=== PATIENT | female | born 1940 | race Caucasian/White ===

== ENCOUNTER 2019-09-21 13:04 | Inpatient (IN) | payer MEDICARE, BC ==
[~2019-09-21] VITALS: Ht 152.4 cm; Wt 45.4 kg
[2019-09-21] MEDS ORDERED: CLEOCIN HCL300 MG PO (13:16)
[2019-09-21] MEDS ORDERED: ZOFRAN4 MG PO (13:17)
[2019-09-21] MEDS ORDERED: CELEXA10 MG PO (13:17)
[2019-09-21] MEDS ORDERED: CALCIUM 250+D T1 TAB PO (13:18)
[2019-09-21] MEDS ORDERED: CENTRUM SILVER1 EAC3 PO (13:18)
[2019-09-21 13:50] LABS: HEMATOCRIT 35.2 % (36.0-48.0); HEMOGLOBIN 11.9 g/dL (12-16); LYMPHOCYTES 16.9 % (15-50); MCH 31.1 pg (26.0-34.0); MCHC 33.8 g/dL (31.0-37.0); MCV 91.9 fL (80.0-100.0); MEAN PLATELET VOLUME 10.2 fL (7.4-10.4); NEUTROPHILS 71.9 % (40-80); PLATELET COUNT 326 10x3/uL (130-400); RBC 3.83 10x6/uL (4.00-5.40); RDW 13.3 % (11.5-14.5); WBC 7.8 10x3/uL (4.8-10.8)
[2019-09-21 13:51] LABS: BILIRUBIN NEGATIVE (NEGATIVE); GLUCOSE NEGATIVE (NEGATIVE); KETONE NEGATIVE (NEGATIVE); NITRITE NEGATIVE (NEGATIVE); SPECIFIC GRAVITY 1.015 (1.005-1.020); UROBILINOGEN NORMAL (NORMAL)
[2019-09-21 13:53] LABS: AMORPHOUS SEDIMENT <1+ /lpf (NONE SEEN); BACTERIA FEW /hpf (NEGATIVE); EPITHELIAL CELLS 0-5 /hpf (0-5); HYALINE CAST OCC /lpf (NONE SEEN); RED CELLS - URINE 0-5 /hpf (0-5); WHITE CELLS - URINE 0-5 /hpf (NEGATIVE)
[2019-09-21 13:59] LABS: INR 0.88 (0.85-1.17); PROTIME 11.9 SECONDS (11.6-15.0)
[2019-09-21 14:00] LABS: UDS - AMPHET NEGATIVE QUAL (NEGATIVE); UDS - BARB NEGATIVE QUAL (NEGATIVE); UDS - BENZO NEGATIVE QUAL (NEGATIVE); UDS - COCAINE NEGATIVE QUAL (NEGATIVE); UDS - OPIATE NEGATIVE QUAL (NEGATIVE); UDS - PCP NEGATIVE QUAL (NEGATIVE); UDS - THC NEGATIVE QUAL (NEGATIVE)
[2019-09-21 14:18] LABS: ALBUMIN 3.9 g/dL (3.4-5.0); ALKALINE PHOSPHATASE 74 U/L (30-120); ALT (SGPT) 21 U/L (10-68); AMYLASE - SERUM 50 U/L (25-115); BILIRUBIN - TOTAL 0.69 mg/dL (0.2-1.3); CALC OSMOLALITY 282 mosm/kg (275-300); CHLORIDE - SERUM 98 mmol/L (98-107); CKMB 1.7 U/L (0.0-3.6); CREATINE KINASE 55 UL (21-215); GLUCOSE 148 mg/dL (74-106); LIPASE 178 U/L (73-393); MAGNESIUM - SERUM 2.2 mg/dL (1.8-2.4); PROTEIN - SERUM 7.5 g/dL (6.4-8.2); SODIUM 139 mmol/L (136-145); THYROID STIMULATING HORMONE 0.79 uIU/mL (0.36-3.74); TROPONIN-I < 0.017 ng/mL (0.000-0.060); UREA NITROGEN 19 mg/dL (7-18); eGFR NON AFRICAN AMERICAN 25 mL/min (90-120)
[2019-09-21 14:32] LABS: POTASSIUM - SERUM 2.8 mmol/L (3.5-5.1)
--- NOTE | 2019-09-21 14:32 | NUR ---
k+ of 2.8 called by vat house laborer at this time. 15.8 critically high calcium called by vat house laborer at this time.
[2019-09-21 14:33] LABS: CALCIUM 15.8 mg/dL (8.5-10.1)
[2019-09-21 16:46] VITALS: BMI 19.5
[2019-09-21 17:37] VITALS: BP 182/80
--- NOTE | 2019-09-21 18:45 | NUR ---
PATIENT IN BED WITH IV INTACT. NEEDS ONE MORE RIDER OF K+. IV INTACT. GAVE TYLENOL FOR GROIN PAIN. DR. MOSES OVER TO SEE PATIENT. CALL LIGHT WITHIN REACH.
[2019-09-21 20:01] VITALS: BP 189/97
--- NOTE | 2019-09-21 20:10 | NUR ---
AWAKE,ALERT.ORIENTED TO SELF ONLY. NO CONMPLAITNS VOICED. NO DISTRESS NOTED. 16 FR CALL PLACED PER DR MOSES ORDERS. RETURNED 500 CC CLEAR YELLOW URINE. IV TO LFA INTACT WITHOUT REDENESS OR EDEMA NOTED. CL IN REACH
[2019-09-22] VITALS (7 sets, daily range): BP systolic 144–192; BP diastolic 65–97; BMI 19.5
[2019-09-22 04:58] LABS: HEMOGLOBIN 9.9 g/dL (12-16); LYMPHOCYTES 22.5 % (15-50); MCH 30.6 pg (26.0-34.0); MCV 92.6 fL (80.0-100.0); MEAN PLATELET VOLUME 10.2 fL (7.4-10.4); NEUTROPHILS 65.4 % (40-80); PLATELET COUNT 261 10x3/uL (130-400); RBC 3.24 10x6/uL (4.00-5.40); RDW 13.3 % (11.5-14.5)
[2019-09-22 05:08] LABS: WBC 5.4 10x3/uL (4.8-10.8)
[2019-09-22 05:34] LABS: BILIRUBIN - TOTAL 0.76 mg/dL (0.2-1.3); CARBON DIOXIDE 33.3 mmol/L (21.0-32.0); CREATININE - SERUM 1.8 mg/dL (0.6-1.3); MAGNESIUM - SERUM 1.9 mg/dL (1.8-2.4); PHOSPHOROUS 2.4 mg/dL (2.5-4.9); PROTEIN - SERUM 6.1 g/dL (6.4-8.2); THYROID STIMULATING HORMONE 0.7 uIU/mL (0.36-3.74)
[2019-09-22 05:36] LABS: ALBUMIN 2.9 g/dL (3.4-5.0); ANION GAP 5.4 mmol/L (8-16)
[2019-09-22 05:37] LABS: CALCIUM 13.3 mg/dL (8.5-10.1); POTASSIUM - SERUM 2.7 mmol/L (3.5-5.1)
--- NOTE | 2019-09-22 12:34 | NUR ---
SCAB NOTED ON RIGHT PUBIS. NO DRAINAGE OR ODOR. TREATED PRIOR TO ADMISSION WITH CLINDAMYCIN PER PRIMARY MD: MOST LIKELY INGROWN HAIR. WOUND CARE WILL MONITOR NEEDED.
--- NOTE | 2019-09-22 18:45 | NUR ---
PATIENT IN BED WITH IV INTACT. NO COMPLAINTS. REFUSING TO EAT. CALL INTACT. CALL LIGHT WITHIN REACH.
--- NOTE | 2019-09-23 00:14 | NUR ---
194) REC'D. CHGE OF SHIFT WALKING ROUNDS.IN BED EYES CLOSED RESP. DEEP AND EVEN.AROUSES EASILY TO VERBAL STIMULI WHEN NAME CALLED.ROOM AIR NO RESP. DISTRESS OBSERVED.CALL PATENT AND JESUS COLORED.WILL CONTINUE TO MONITOR FOR ANY CHGES AND FOLLOW CURRENT PLAN OF CAREPOSEY MAT IN PLACE AND ON FOR SAFETY.
--- NOTE | 2019-09-23 01:09 | NUR ---
I have reviewed this patient and I concur with the Shift Assessment completed by the Licensed Practical Nurse today this shift.
[2019-09-23 04:00] VITALS: BP 189/92
--- NOTE | 2019-09-23 04:34 | NUR ---
PULLED IV OUT LEFT FOREARM RESISTED #22 LEFT UPPER ARM X1 STICK. TOLERATED WELL
[2019-09-23 04:59] LABS: HEMATOCRIT 29.7 % (36.0-48.0); HEMOGLOBIN 10.1 g/dL (12-16); LYMPHOCYTES 20.7 % (15-50); MCH 31.3 pg (26.0-34.0); MEAN PLATELET VOLUME 10.1 fL (7.4-10.4); NEUTROPHILS 71.2 % (40-80); PLATELET COUNT 272 10x3/uL (130-400); RBC 3.23 10x6/uL (4.00-5.40); RDW 13.3 % (11.5-14.5)
[2019-09-23 05:01] LABS: ALBUMIN 3.2 g/dL (3.4-5.0); ANION GAP 13.3 mmol/L (8-16); BILIRUBIN - TOTAL 0.81 mg/dL (0.2-1.3); CALCIUM 11.5 mg/dL (8.5-10.1); CARBON DIOXIDE 26.5 mmol/L (21.0-32.0); CREATININE - SERUM 1.6 mg/dL (0.6-1.3); PROTEIN - SERUM 6.5 g/dL (6.4-8.2)
[2019-09-23 05:02] LABS: WBC 7.4 10x3/uL (4.8-10.8)
[2019-09-23 05:15] LABS: POTASSIUM - SERUM 2.8 mmol/L (3.5-5.1)
[2019-09-23 09:03] VITALS: BP 201/97
[2019-09-23 11:09] LABS: SPE - A/G RATIO 1.2 (0.7-1.7); SPE - ALPHA-1 GLOBULIN 0.3 g/dL (0.0-0.4); SPE - ALPHA-2 GLOBULIN 0.7 g/dL (0.4-1.0); SPE - BETA GLOBULIN 0.8 g/dL (0.7-1.3); SPE - GAMMA GLOBULIN 0.8 g/dL (0.4-1.8); SPE - M-SPIKE Not Observed g/dL (Not Observed); SPE - TOTAL PROTEIN 5.6 g/dL (6.0-8.5)
[2019-09-23 12:48] VITALS: BP 199/108
--- NOTE | 2019-09-23 14:37 | MORECARE ---
CASE MANAGEMENT DISCHARGE SUMMARY PATIENT: OZIEL CABRERA UNIT: [id number] ADM DATE: 09/21/19 AGE: 78 : 40 SEX: F ROOM/BED: D.2220 AUTHOR: RAIMUNDO SANFORD PHYSICIAN: REFERRING PHYSICIAN: DANAE WYNN MD DATE OF SERVICE: 09/23/19 Discharge Plan Patient Name: OZIEL CABRERA Facility: [facility]:[place] : 1940 Planned Disposition: Home or Self Care Anticipated Discharge Date: Discharge Date: Expected LOS: Initial Reviewer: [email or web address] Initial Review Date: 09/21/2019 Generated: 09/23/19 3:36 pm DCPIA - Discharge Planning Initial Assessment Updated by [email or web address]: Heidi Kitchen on 09/23/19 2:27 pm * Is the patient Alert and Oriented? Yes * How many steps to enter\exit or inside your home? * PCP ANDREA * Pharmacy [facility] * Preadmission Environment Home with Family * ADLs Independent * Equipment None * List name and contact numbers for known caregivers / representatives who currently or will assist patient after discharge: REYNA (SPOUSE) [phone] * Verbal permission to speak to the caregivers and representatives has been obtained from the patient. Yes * Additional services required to return to the preadmission environment? Yes * Has this patient been hospitalized within the prior 30 days at any hospital? No Patient Name: OZIEL CABRERA Page [phone] at 1437 All edits/amendments must be made on the electronic document DICTATION DATE: 09/23/19 1436 BUFFER AUTOMATIC: EARLE 09/23/19 1436 RPT#: [id number] DC DATE: STATUS: ADM IN [facility] [address] [place] [address] END OF REPORT
--- NOTE | 2019-09-23 16:14 | NUR ---
Patient is unable to answer MRI screening questions. I tried both phone numbers for her and was unable to get him to answer. I will try again tomorrow.
[2019-09-23 17:49] VITALS: BP 202/100
[2019-09-23 20:00] VITALS: BP 190/93
[2019-09-24] VITALS: BP 140/62
--- NOTE | 2019-09-24 01:02 | NUR ---
PT RESTING IN BED. EYES CLOSED. NO SIGNS OF DISTRESS. BREATHING EVEN AND UNLABORED. IV SITE LT UPPER ARM DRESSING CLEAN DRY AND INTACT. NO SIGNS OF INFECTION OR INFULTRATION. LUNG SOUNDS CLEAR. BOWEL SOUNDS ACTIVE. SKIN CLEAN DRY AND INTACT. WILL CONTINUE PLAN OF CARE. CALL LIGHT IN REACH. BED LOWERED AND LOCKED. VENTURA ALARM ON. BED RAILS UPX2.
--- NOTE | 2019-09-24 01:53 | NUR ---
I have reviewed this patient and I concur with the Shift Assessment completed by the Licensed Practical Nurse today this shift.
--- NOTE | 2019-09-24 01:53 | NUR ---
I have reviewed this patient and I concur with the Shift Assessment completed by the Licensed Practical Nurse today this shift.
[2019-09-24 04:00] VITALS: BP 113/71
[2019-09-24 04:56] LABS: BASOPHILS 0.5 % (0-2); EOSINOPHILS 1.8 % (0-7); IMMATURE GRANULOCYTES 0.5 % (0-5); MCH 31.1 pg (26.0-34.0); MCHC 33.3 g/dL (31.0-37.0); MCV 93.2 fL (80.0-100.0); MEAN PLATELET VOLUME 10.3 fL (7.4-10.4); MONOCYTES 9.4 % (2-11); NEUTROPHILS 70.8 % (40-80); PLATELET COUNT 271 10x3/uL (130-400); RBC 3.22 10x6/uL (4.00-5.40); RDW 13.3 % (11.5-14.5); WBC 7.4 10x3/uL (4.8-10.8)
[2019-09-24 05:18] LABS: ALBUMIN 2.9 g/dL (3.4-5.0); ANION GAP 12.9 mmol/L (8-16); BILIRUBIN - TOTAL 0.98 mg/dL (0.2-1.3); CALCIUM 9.2 mg/dL (8.5-10.1); CARBON DIOXIDE 24.4 mmol/L (21.0-32.0); CREATININE - SERUM 1.3 mg/dL (0.6-1.3); POTASSIUM - SERUM 3.3 mmol/L (3.5-5.1); PROTEIN - SERUM 6.2 g/dL (6.4-8.2)
--- NOTE | 2019-09-24 08:00 | NUR ---
ASSESSMENT PER FLOW SHEET. PATIENT IS WITHOUT DISTRESS.CALL LIGHT I REACH. DOOR OPEN TO MONITOR.
[2019-09-24 09:53] VITALS: BP 146/83
[2019-09-24 09:54] LABS: % SATURATION 25 % (15-55); IRON 56 ug/dl (35-150); TOTAL IRON BIND CAPACITY 223 ug/dl (260-445); UNSAT IRON BIND CAPACITY 167 ug/dl (150-375)
--- NOTE | 2019-09-24 11:16 | NUR ---
PATIENT AND BOTH REFUSED MRI. PER PATIENT AND THEY WANTED TO TALK TO DR MENDEZ BECAUSE THE "DON'T THINK SHE NEEDS IT." SPOKE WITH DEBBIE DELVALLE AND RJ AT DR COSTA'S OFFICE. MRI IS CANCELLED.
[2019-09-24 13:10] LABS: UPE RAND - ALBUMIN 43.6 % (()); UPE RAND - ALPHA 1 GLOBULIN 9.1 % (()); UPE RAND - ALPHA 2 GLOBULIN 12.4 % (()); UPE RAND - BETA GLOBULIN 20.5 % (()); UPE RAND - GAMMA GLOBULIN 14.4 % (())
[2019-09-24 13:21] VITALS: BP 143/60
[2019-09-24 16:46] VITALS: BP 149/78
--- NOTE | 2019-09-24 17:22 | NUR ---
PATIENT AND PATIENTS DECLINED MRI EARLIER TODAY. PATIENT SAYS SHE STILL DOES NOT WANT MRI AND REFUSES TEST.
--- NOTE | 2019-09-24 17:23 | NUR ---
MRI WAS REORDERED. PATIENT IS STILL REFUSING EXAM. SPOKE WITH DEBBIE DELVALLE, NEGRITO JOLLEY, AND DR COSTA. WE WILL TRY AGAIN TOMORROW.
--- NOTE | 2019-09-24 18:39 | NUR ---
OT NOTE: PT COMPLETED BED MOB TASKS WITH MOD A. PT REQUIRED CUES FOR SIMPLE TASKS. PT COMPLETED UB HYGIENE WITH SETUP-MIN A. [phone] THANK YOU,CLAUDINE TURCIOS
[2019-09-25] VITALS: BP 129/55
--- NOTE | 2019-09-25 01:05 | NUR ---
PT STATES SHE FEELS VERY ANXIOUS. PT PARINOID STATES " WE ARE OUT TO GET HER IF SHE DOESNT RETURN HOME NOW HER SON IS A FBI AGENT AND HE WILL FIND OUT WHAT HAPPEND" GIVEN LEANDRO SANTOYO. WILL CLOSELY MONITOR. CALL LIGHT IN REACH BED ALARM ON.
--- NOTE | 2019-09-25 01:46 | NUR ---
PT RESTING IN BED NOW. EYES CLOSED. NO SIGNS OF DISTRESS. BREATHING EVEN AND UNLABORED. WILL CONTINUE PLAN OF CARE. CALL LIGHT IN REACH. VENTURA ALARM ON. BED RAILS UPX3
[2019-09-25 04:00] VITALS: BP 1369/65
--- NOTE | 2019-09-25 04:51 | NUR ---
I have reviewed this patient and I concur with the Shift Assessment completed by the Licensed Practical Nurse today this shift.
[2019-09-25 05:40] LABS: BASOPHILS 0.3 % (0-2); EOSINOPHILS 2.9 % (0-7); HEMATOCRIT 27.6 % (36.0-48.0); HEMOGLOBIN 9.2 g/dL (12-16); IMMATURE GRANULOCYTES 0.3 % (0-5); LYMPHOCYTES 20.2 % (15-50); MCH 30.9 pg (26.0-34.0); MCHC 33.3 g/dL (31.0-37.0); MCV 92.6 fL (80.0-100.0); NEUTROPHILS 68.3 % (40-80); PLATELET COUNT 240 10x3/uL (130-400); RBC 2.98 10x6/uL (4.00-5.40); RDW 13.6 % (11.5-14.5); WBC 5.8 10x3/uL (4.8-10.8)
[2019-09-25 06:03] LABS: ALBUMIN 2.5 g/dL (3.4-5.0); ANION GAP 10.7 mmol/L (8-16); BILIRUBIN - TOTAL 0.6 mg/dL (0.2-1.3); CALCIUM 7.7 mg/dL (8.5-10.1); CARBON DIOXIDE 24.4 mmol/L (21.0-32.0); CREATININE - SERUM 1.1 mg/dL (0.6-1.3); POTASSIUM - SERUM 3.1 mmol/L (3.5-5.1); PROTEIN - SERUM 5.5 g/dL (6.4-8.2)
--- NOTE | 2019-09-25 08:06 | NUR ---
ALERT AND ORIENTED TO SELF. LUNGS CLEAR BILATERALLY. HEART SOUNDS S1 AND S2 HEARD IN ALL [place]. BOWEL SOUNDS ACTIVE X 4. SORE TO VAGINA NOTED. IV TO LFA PATENT WITHOUT REDNESS. DENIES PAIN. DENIES NEEDS. BED LOW. FALL PRECAUTIONS IN PLACE. CALL MADISON AND PERSONAL ITEMS IN REACH. WILL CONTINUE TO MONITOR.
[2019-09-25 08:45] VITALS: BP 146/76
--- NOTE | 2019-09-25 11:45 | NUR ---
SPOKE WITH MRI WHO IS ASKING IF PATIENT WILL DO MRI THIS AFTERNOON. PATIENT STATES NOT DOING MRI. ATTEMPTED TO EDUCATE PATIENT. STATES REPEATEDLY IS NOT DOING MRI. MRI NOTIFIED.
[2019-09-25 12:12] VITALS: BP 116/64
--- NOTE | 2019-09-25 13:01 | NUR ---
CALL REMOVED AND PATIENT EDUCATION PROVIDED. VERBALIZED UNDERSTANDING. WILL CONTINUE TO MONITOR.
--- NOTE | 2019-09-25 15:02 | NUR ---
SPOKE WITH THE PATIENT ABOUT THE MRI AGAIN. ROSY NUCLEAR MEDICAL TECHNOLOGIST AND I BOTH EXPLAINED HOW IMPORTANT IT WAS FOR THE PATIENT TO HAVE THE MRI. THE PATIENT REFUSED TO HAVE THE MRI AGAIN. ROSY INFORMED ME TO PUT EXAM ON HOLD AND SHE WOULD SPEAK TO ESTEE JOLLEY AND DR COSTA ON HOW TO CONTINUE.
--- NOTE | 2019-09-25 15:17 | NUR ---
PATIENT ASSISTED TO BSC. LARGE VOID NOTED.
--- NOTE | 2019-09-25 15:40 | MORECARE ---
CASE MANAGEMENT DISCHARGE SUMMARY PATIENT: OZIEL CABRERA UNIT: [id number] ADM DATE: 09/21/19 AGE: 78 : 40 SEX: F ROOM/BED: D.2220 AUTHOR: RAIMUNDO SANFORD PHYSICIAN: REFERRING PHYSICIAN: DANAE WYNN MD DATE OF SERVICE: 09/25/19 Discharge Plan Patient Name: OZIEL CABRERA Facility: [facility]:[place] : 1940 Planned Disposition: Home or Self Care Anticipated Discharge Date: Discharge Date: Expected LOS: Initial Reviewer: [email or web address] Initial Review Date: 09/21/2019 Generated: 09/25/19 4:40 pm Comments DCP- Discharge Planning Updated by [email or web address]: Heidi Kitchen on 09/25/19 2:[address] spoke with Patient and fishing tool technician oil well about the MRI and she is refusing the MRI, even explained to her about not using contrast. She still is not wanting to do the test. the providers all aware DCP- Discharge Planning Updated by [email or web address]: Heidi Kitchen on 09/23/19 1:[address] Patient Name: OZIEL CABRERA Admission Status: ER Accout number: [id number] Admission Date: 09-21-2019 : 1940 Admission Diagnosis:ALTERED MENTAL STATUS, UNSPECIFIED Attending: DANAE WYNN Current LOS: 2 Anticipated DC Date: Planned Disposition: Home or Self Care Primary Insurance: MEDICARE A & B Discharge Planning Comments: CM met with patient to complete initial dc planning assessment. CM educated patient on the CM role and verbal consent given by patient to complete assessment. 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 The patient is very tearful and sad. She is having a hard time getting words out and would like to speak to her . I attempted to call him but he did not answer, but I left a message for him to call her room & I placed the phone in her lap where she could reach it. From previous interaction with her spouse this past year, this is abnormal behavior for the patient then how he described her. Patient did state that she does not uses any DME and feeds herself at home. When I mentioned this to the patients nurse, the patient asked me why in the world would I ask these questions. There is a "feeder" sign on the door. I got the patient a glass of fresh water and she held it and served herself. She was unable to place it back on the bedside table. Patient denied known discharge needs at this time. CM will continue to follow and will assist as needed with dc plans/needs. Vehicle Damage Appraiser: Heidi Kitchen DCPIA - Discharge Planning Initial Assessment Updated by [email or web address]: Heidi Kitchen on 09/23/19 2:27 pm * Is the patient Alert and Oriented? Yes * How many steps to enter\\exit or inside your home? * PCP ANDREA * Pharmacy [facility] * Preadmission Environment Home with Family * ADLs Independent * Equipment None * List name and contact numbers for known caregivers / representatives who currently or will assist patient after discharge: REYNA (SPOUSE) [phone] * Verbal permission to speak to the caregivers and representatives has been obtained from the patient. Yes * Additional services required to return to the preadmission environment? Yes * Has this patient been hospitalized within the prior 30 days at any hospital? No Last DP export: 09/23/19 1:36 p Patient Name: OZIEL CABRERA Page [phone] at 1540 All edits/amendments must be made on the electronic document DICTATION DATE: 09/25/19 154 SURVEILLANCE SENSOR OPERATOR: EARLE 09/25/19 1540 RPT#: [id number] DC DATE: STATUS: ADM IN [facility] [address] [place] [address] END OF REPORT
--- NOTE | 2019-09-25 17:24 | NUR ---
RESTING IN BED. DNEIES NEEDS. WILL CONTINUE TO MONITOR.
[2019-09-25 17:27] VITALS: BP 125/73
[2019-09-25 20:00] VITALS: BP 122/69
--- NOTE | 2019-09-25 20:00 | NUR ---
PT ALERT AND ORIENTED. NO SIGNS OF DISTRESS. BREATHING EVEN AND UNLABORED. PT SEEMS IN HAPPY MOOD. PT STATES NO PROBLEMS AT THIS TIME. IV SITE LT FA DRESSING CLEAN DRY AND INTACT. NO SIGNS OF IFECTION OR INFULTRATION. BOWEL SOUNDS ACTIVE. LUNG SOUNDS CLEAR. SKIN CLEAN DRY AND INTACT. SMALL SCAB ON GROIN NOT OPEN. WILL CONTINUE PLAN OF CARE. CALL LIGHT IN REACH. BED LOWERED AND LOCKED. VENTURA ALARM ON. FALL PRECAUTIONS IN PLACE.
[2019-09-26] VITALS: BP 121/64
--- NOTE | 2019-09-26 02:53 | NUR ---
PT WOKE UP IN A PARINOID STATE. PT STATES SEEING THINGS OUT IN THE HALLWAY THAT ARE NOT THERE. PT STATES "YALL ARE TRICKING ME AND IM GOING TO HERE" ALSO SAYING " WHAT ARE YALL PLANNING HERE AM I EVER GOING TO GET TO SEE MY AND DAUGHTER AGAIN" REASURED PT WE ARE HERE TO HELP HER GET BETTER AND GET BACK HOME TO HER AND DAUGHTER. FINALLY AFTER 20 MINS OF TRYING TO CALM HER DOWN SHE IS IN A BETTER STATE AND RESTING. WILL CONTINUE TO CLOSELY MONITOR. VENTURA ALARM AND ALL FALL PRECAUTIONS ON.
--- NOTE | 2019-09-26 03:39 | NUR ---
PT RESFUSING BLOOD DRAW THIS MORNING. PT STATES " YOU CANT JUST DRAIN PEOPLE OF THERE BLOOD" EXPLAINED THATS WHY SHE IS IN THE HOSPITAL THE DOCTORS NEED TO KEEP CLOSE LOOK ON LAB LEVELS TO BETTER HER CARE PT STATES " WELL I DIDNT BRING MYSELF TO THIS HOSPITAL SO YOU WILL NOT TAKE ANYTHING MORE FROM ME". TRIED TO REORIENT PT STILL REFUSING. WILL ATTEMPT AGAIN LATER.
[2019-09-26 04:00] VITALS: BP 148/84
--- NOTE | 2019-09-26 06:00 | NUR ---
I have reviewed this patient and I concur with the Shift Assessment completed by the Licensed Practical Nurse today this shift.
[2019-09-26 08:56] VITALS: BP 142/83
--- NOTE | 2019-09-26 10:25 | NUR ---
PT IS A LITTLE CONFUSED THIS MORNING, STATED THAT SHE SHOULD BE HOME WITH HER SPOUSE AND DAUGHTER AND UNSURE WHY SHE IS STILL HERE AND WHY HER FAMILY HAS NOT VISITED. WENT OVER COVID PROTOCOL WITH PT, PT IS SITTING UP AT BEDSIDE PREPARING TO HAVE BREAKFAST, STATED SHE DID NOT NEED ANYTHING AT THIS TIME, IV IN LEFT FA CDI FLUIDS AT 125, LUNGS CTA, CONTINUE WITH PLAN OF CARE
[2019-09-26 12:07] LABS: BASOPHILS 0.5 % (0-2); EOSINOPHILS 1.6 % (0-7); HEMATOCRIT 30.3 % (36.0-48.0); IMMATURE GRANULOCYTES 0.5 % (0-5); LYMPHOCYTES 18.7 % (15-50); MCH 30.6 pg (26.0-34.0); MCV 92.7 fL (80.0-100.0); MEAN PLATELET VOLUME 9.9 fL (7.4-10.4); MONOCYTES 6.9 % (2-11); NEUTROPHILS 71.8 % (40-80); PLATELET COUNT 275 10x3/uL (130-400); RBC 3.27 10x6/uL (4.00-5.40); WBC 6.1 10x3/uL (4.8-10.8)
[2019-09-26 12:22] LABS: ALBUMIN 3.1 g/dL (3.4-5.0); BILIRUBIN - TOTAL 0.73 mg/dL (0.2-1.3); CARBON DIOXIDE 22.3 mmol/L (21.0-32.0); PROTEIN - SERUM 6.2 g/dL (6.4-8.2)
[2019-09-26 12:24] LABS: POTASSIUM - SERUM 3.3 mmol/L (3.5-5.1)
[2019-09-26 12:25] LABS: CALCIUM 6.7 mg/dL (8.5-10.1)
--- NOTE | 2019-09-26 12:28 | NUR ---
RECEIVED CALL FROM LAB AND WAS ADVISED PT CA IS 6.7, RELAYED MESSAGE TO RODNEY FONTANEZ AND WAS TOLD TO INFORM RENAL, WILL HAVE RENAL PAGED. PT IS SITTING UP AT BEDSIDE, HAVING LUNCH NO NEEDS VOICED, CONTINUE WITH PLAN OF CARE
--- NOTE | 2019-09-26 13:12 | NUR ---
OT NOTE: PT MORE CONFUSED, PARANOID, AND AGITATED TODAY. WANTS TO KNOW WHY SHE CANT SEE HER OR DTR; WHY CANT SHE GET OUT OF HERE; REFUSES TO AMBULATE BECAUSE SHE THINKS THIS THERAPIST WILL "MAKE HER DISAPPEAR"..REFUSES ALL ADLS OR IN ROOM MOBILITY. HOWEVER, WHEN P.T. CHART CHANGER COMES INTO PTS ROOM, SHE RECOGNIZES HIM AND CALLS HIM BY NAME.. AGREEABLE TO AMB WTIH HIM WITH WALKER GREATER THAN 100 FT.. TRANSFERRED TO CHAIR FOR HIM WITH MIN ASSIST WALKER GOMEZ, OTR/L [phone]
--- NOTE | 2019-09-26 13:30 | NUR ---
NUtrition follow-up: Diet: AHA PO intake 25-50% of last 3 meals; po intake improved a little from admit Labs reviewed Wt: 99# Will continue to provide food choices and honor food preferences. RDN following.
--- NOTE | 2019-09-26 17:02 | NUR ---
OT NOTE: PT COMPLETED FACE AND HAND HYGIENE WITH MIN A. PT COMPLETED UE AROM WITH FUNCTIONAL TASKS. PT IS EXHIBITING SELF LIMITING BEHAVIOR. PT STATES SHE NEEDS TO SEE DAUGHTER AND . [phone] THANK YOU,CLAUDINE TURCIOS
[2019-09-26 18:31] VITALS: BP 134/68
--- NOTE | 2019-09-26 19:41 | NUR ---
I have reviewed this patient and I concur with the Shift Assessment completed by the Licensed Practical Nurse today this shift.
[2019-09-26 20:00] VITALS: BP 127/71
--- NOTE | 2019-09-26 20:29 | NUR ---
PATIENT CALLED. PATIENT CONFUSED. DOES NOT UNDERSTAND WHAT THIS NURSE IS TALKING ABOUT BETWEEN CT SCAN AND MRI. EXPLAINED IN VERY SIMPLE TERMS. PATIENT DOES NOT ALLOW NURSE TO TALK WITHOUT SPEAKING OVER. CONSTANTLY TALKS OVER THIS NURSE. EXPLAINED SEVERAL TIMES DIFFERENCE BETWEEN MRI AND CAT SCAN. SEVERAL MINUTES ON THE PHONE WITH EXPLAINING. AT THIS TIME CONSENTS FOR PATIENT TO HAVE MRI LONG THERE ARE NO PROCEDURES WITH CONTRAST.
[2019-09-27 04:00] VITALS: BP 118/65
--- NOTE | 2019-09-27 04:00 | NUR ---
I have reviewed this patient and I concur with the Shift Assessment completed by the Licensed Practical Nurse today this shift.
[2019-09-27 06:55] LABS: BASOPHILS 0.6 % (0-2); EOSINOPHILS 4.7 % (0-7); HEMATOCRIT 24.7 % (36.0-48.0); HEMOGLOBIN 8.1 g/dL (12-16); IMMATURE GRANULOCYTES 0.6 % (0-5); LYMPHOCYTES 24.7 % (15-50); MCH 30.2 pg (26.0-34.0); MCHC 32.8 g/dL (31.0-37.0); MCV 92.2 fL (80.0-100.0); MEAN PLATELET VOLUME 9.8 fL (7.4-10.4); MONOCYTES 9.2 % (2-11); NEUTROPHILS 60.2 % (40-80); PLATELET COUNT 235 10x3/uL (130-400); RBC 2.68 10x6/uL (4.00-5.40); RDW 14.3 % (11.5-14.5); WBC 5.3 10x3/uL (4.8-10.8)
[2019-09-27 07:13] LABS: ALBUMIN 2.5 g/dL (3.4-5.0); BILIRUBIN - TOTAL 0.54 mg/dL (0.2-1.3); CARBON DIOXIDE 21.3 mmol/L (21.0-32.0); CREATININE - SERUM 0.9 mg/dL (0.6-1.3); POTASSIUM - SERUM 3.3 mmol/L (3.5-5.1); PROTEIN - SERUM 5.5 g/dL (6.4-8.2)
[2019-09-27 07:16] LABS: CALCIUM 6.2 mg/dL (8.5-10.1)
--- NOTE | 2019-09-27 07:17 | NUR ---
RECEIVED CALL FROM LAB THAT PT CA THIS MORING IS 6.2 WHICH IS BETTER THAN YESTERDAYS 6.7. PT K+ IS 3.3 WILL REPLACE THIS MORNING DURING MORNING MEDS PT IS ASLEEP, SPOKE TO SPOUSE THIS MORNING WHO STATED THEY HAVE AGREED TO MRI. WILL RELAY MESSAGE TO PROVIDERS, CONTINUE WITH PLAN OF CARE
[2019-09-27 08:28] VITALS: BP 138/74
--- NOTE | 2019-09-27 09:12 | NUR ---
PT SPOUSE CALLED PM NURSE AND STATED THEY WANT MRI COMPLETED, SPOKE TO KALEN IN MEDICAL IMAGING TODAY WHO CALLED CAAR WHO IS LEVEL VIAL CURVATURE GAUGER FOR MRI THIS WEEKEND. RECEIVED CALL FROM CARA AND EXPLAINED SITUATION, WITH CARA ON PHONE, I ASKED PT IF SHE IS WILLING TO HAVE MRI COMPLETED. PT STATED "WHAT EVER YOU SAY I JUST WANT HELP". EXPLAINED TO PT THAT WE ARE HERE TO HELP HER GET BETTER AND THAT IS OUR MAIN GOAL. EXPLAINED TO PT THAT SHE WILL HAVE TO STAY STILL FOR AT LEAST AN HOUR FOR THE STUDY PT STATED SHE WILL TRY HER BEST. PER CARA, SHE WILL BE IN AFTER SHE TOUCHES BASE WITH PT SPOUSE FOR MRI. CONTINUE WITH PLAN OF CARE
--- NOTE | 2019-09-27 11:52 | NUR ---
CARA WITH MRI HERE TO TAKE PT FOR TEST, ASSISTED PT TO WC AND COVERED WITH BLANKET. ASSURED PT I WILL BE HERE WHEN SHE RETURNS. CONTINUE WITH PLAN OF CARE
[2019-09-27 12:24] VITALS: BP 132/76
--- NOTE | 2019-09-27 12:31 | NUR ---
SPOKE WITH PATIENTS ROWENA AND HE INFORMED ME THAT THEY WILL DO THE MRI OF THE BRAIN (PITUITARY) WITHOUT THE CONTRAST. PT ALSO STATED SHE WOULD DO THE SCAN WITHOUT CONTRAST. PT TO MRI SUITE FOR TEST, TEST WAS COMPLETED AND SHE WAS RETURNED TO HER ROOM. KEDAR DELVALLE ASSISTED IN GETTING PATIENT BACK AND COMFORTABLE. I CALLED HER AND INFORMED HIM THAT THE TEST WAS COMPLETED WITHOUT THE CONTRAST AND THE RESULTS WILL BE ON HER CHART THIS AFTERNOON. HE WAS APPRECIATIVE OF THE CALL.
--- NOTE | 2019-09-27 12:31 | NUR ---
RECEIVED PT BACK FROM MRI. ASSITED PT TO CHAIR AT BEDSIDE AND SET TRAY UP FOR LUNCH, GAVE PT 2 BLANKETS SHE IS STILL COLD. NO OTHER NEEDS AT THIS TIME CONTINUE WITH PLAN OF CARE
--- NOTE | 2019-09-27 15:23 | NUR ---
PT K+ WENT FROM 3.2 TO 3.4 ADMINISTERED 40MEQ OF K+ PER EP. CONTINUE WITH PLAN OPF CARE
[2019-09-27 15:31] VITALS: Ht 152.4 cm; Wt 45.4 kg
[2019-09-27 16:07] VITALS: BP 134/76
--- NOTE | 2019-09-27 17:55 | NUR ---
I have reviewed this patient and I concur with the Shift Assessment completed by the Licensed Practical Nurse today this shift.
--- NOTE | 2019-09-27 18:06 | NUR ---
PT C/O PAIN IN HER HANDS ARTHRITIS LIKE BY DESCRIPTION, ADMINISTERED PRN TYLENOL TO SEE IF THIS WOULD HELP PT WITH PAIN IN HANDS, ASSISTED PT TO BSC AND BACK TO BED, NO OTHER NEEDS VOICED, CONTINUE WITH PLAN OF CARE
--- NOTE | 2019-09-27 19:17 | NUR ---
PATIENT ALERT, CALM, AND SLIGHTLY CONFUSED. REORIENTS EASILY TO SURROUNDINGS. MUCH MORE ORIENTED WITH DIRECTION THAN PRIOR PM SHIFT. PATIENT COMPLAINS OF GROIN PAIN, ASKS FOR BACTROBAN OINTMENT TO BE APPLIED NOW INSTEAD OF 2099. APPLIED PER REQUEST. SCANNED AND DOCUMENTED IN EMAR. ASSISTED TO BED SIDE COMMODE AND BACK TO BED SAFELY. VENTURA ALARM ON. PATIENT ASKS TO BRUSH TEETH, ASSITED IN SET UP. DENIES FURTHER NEEDS AT THIS TIME. NO IV ACCESS, RECEIVED IN REPORT THAT INFILTRATION OCCURED ON PRIOR SHIFT AND MD'S NOTES STATES DILUTION COULD BE CAUSING DROP IN HH SO IVF NOT NEEDED. NO IV RESITED AT THIS TIME. CALL LIGHT CLOSE. SIDE RAILS UP. CPOC.
[2019-09-27 20:00] VITALS: BP 132/71
--- NOTE | 2019-09-27 22:47 | NUR ---
PATIENT USED CALL LIGHT AND ASKED FOR ASSISTANCE TO THE BEDSIDE COMMODE. ASSISTED PATIENT AND RETURNED BACK TO BED SAFELY. FALL PRECAUTIONS REMAIN IN PLACE. DENIES FURTHER NEEDS AT THIS TIME. CALL LIGHT CLOSE. CPOC.
[2019-09-28] VITALS: BP 120/60
[2019-09-28 04:00] VITALS: BP 126/89
--- NOTE | 2019-09-28 04:20 | NUR ---
ASSISTED TO BEDSIDE COMMODE AND WASHING FACE. ENCOURAGED PATIENT TO USE INCENTIVE SPIROMETER THAT I PROVIDED TO PATIENT ON PRIOR SHIFT. PATIENT USING WHEN LEAVING THE ROOM. FALL PRECAUTIONS IN PLACE.
[2019-09-28 05:32] LABS: BASOPHILS 0.8 % (0-2); EOSINOPHILS 5.2 % (0-7); HEMATOCRIT 26.6 % (36.0-48.0); HEMOGLOBIN 8.9 g/dL (12-16); IMMATURE GRANULOCYTES 0.2 % (0-5); LYMPHOCYTES 30.4 % (15-50); MCH 30.9 pg (26.0-34.0); MCHC 33.5 g/dL (31.0-37.0); MCV 92.4 fL (80.0-100.0); MEAN PLATELET VOLUME 9.9 fL (7.4-10.4); MONOCYTES 10.1 % (2-11); NEUTROPHILS 53.3 % (40-80); PLATELET COUNT 261 10x3/uL (130-400); RBC 2.88 10x6/uL (4.00-5.40); RDW 14.5 % (11.5-14.5)
[2019-09-28 06:03] LABS: % SATURATION 21 % (15-55); IRON 52 ug/dl (35-150); TOTAL IRON BIND CAPACITY 246 ug/dl (260-445); UNSAT IRON BIND CAPACITY 194 ug/dl (150-375)
[2019-09-28 06:19] LABS: ANION GAP 15.8 mmol/L (8-16); BILIRUBIN - TOTAL 0.73 mg/dL (0.2-1.3); CARBON DIOXIDE 19.3 mmol/L (21.0-32.0); POTASSIUM - SERUM 3.1 mmol/L (3.5-5.1); PROTEIN - SERUM 6.3 g/dL (6.4-8.2)
[2019-09-28 06:21] LABS: CALCIUM 6.3 mg/dL (8.5-10.1)
--- NOTE | 2019-09-28 06:52 | NUR ---
I have reviewed this patient and I concur with the Shift Assessment completed by the Licensed Practical Nurse today this shift.
--- NOTE | 2019-09-28 07:45 | NUR ---
RESTING IN BED, NO DISTRESS NOTED, ALERT AND O THIS AM, WAITING POSSIBLE DC
[2019-09-28 08:42] VITALS: BP 121/74
[2019-09-28 12:35] VITALS: BP 128/70
[2019-09-28] MEDS ORDERED: MUPIROCIN22 GM TOPICAL (12:55)
[2019-09-28] MEDS ORDERED: CARDIZEM CD240 MG PO (12:55)
[2019-09-28] MEDS ORDERED: CATAPRES0.1 MG PO (12:55)
--- NOTE | 2019-09-28 13:35 | NUR ---
REVIEWED DC ORDERS WITH PT, BRINGING CLOTHES TO WEAR HOME,
--- NOTE | 2019-09-28 14:12 | MORECARE ---
CASE MANAGEMENT DISCHARGE SUMMARY PATIENT: OZIEL CABRERA UNIT: [id number] ADM DATE: 09/21/19 AGE: 78 : 40 SEX: F ROOM/BED: D.2220 AUTHOR: JUVENALDOC PHYSICIAN: REFERRING PHYSICIAN: DANAE WYNN MD DATE OF SERVICE: 09/28/19 Discharge Plan Patient Name: OZIEL CABRERA Facility: [facility]:[place] : 1940 Planned Disposition: Home or Self Care Anticipated Discharge Date: Discharge Date: Expected LOS: Initial Reviewer: [email or web address] Initial Review Date: 09/21/2019 Generated: 09/28/19 3:11 pm Comments DCP- Discharge Planning Updated by [email or web address]: Dinorah Wagner on 09/28/19 1:[address] Patient Name: OZIEL CABRERA Encounter No: [id number] : 1940 Primary Insurance: MEDICARE A & B Anticipated DC Date: Planned Disposition: Home or Self Care External Planned Provider: : DCP follow-up note: Patient in agreement with discharge plan. No changes to plan. States her is going to purchase a walker. I informed her that she could go to [employer] or [employer] and use her insurance card, voiced understanding. I encouraged home health for OT/ST/PT. She states her daughter is getting private care with [facility] and she has used home health in the past. States she is going to have house calls and she thinks "that would be too many people coming to the house", so she declines home health at this time. I gave her a list of the home health agencies and encouraged her to speak with house calls about getting it set up. States will pick her up today for dc. Case management will follow and assist as needed. Dinorah Wagner DCP- Discharge Planning Updated by [id number]: Heidi Kitchen on 09/25/19 2:[address] spoke with Patient and donor services technician about the MRI and she is refusing the MRI, even explained to her about not using contrast. She still is not wanting to do the test. the providers all aware DCP- Discharge Planning Updated by [email or web address]: Heidi Kitchen on 09/23/19 1:[address] Patient Name: OZIEL CABRERA Admission Status: ER Accout number: [id number] Admission Date: 09-21-2019 : 1940 Admission Diagnosis:ALTERED MENTAL STATUS, UNSPECIFIED Attending: DANAE WYNN Current LOS: 2 Anticipated DC Date: Planned Disposition: Home or Self Care Primary Insurance: MEDICARE A & B Discharge Planning Comments: CM met with patient to complete initial dc planning assessment. CM educated patient on the CM role and verbal consent given by patient to complete assessment. 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 The patient is very tearful and sad. She is having a hard time getting words out and would like to speak to her . I attempted to call him but he did not answer, but I left a message for him to call her room & I placed the phone in her lap where she could reach it. From previous interaction with her spouse this past year, this is abnormal behavior for the patient then how he described her. Patient did state that she does not uses any DME and feeds herself at home. When I mentioned this to the patients nurse, the patient asked me why in the world would I ask these questions. There is a "feeder" sign on the door. I got the patient a glass of fresh water and she held it and served herself. She was unable to place it back on the bedside table. Patient denied known discharge needs at this time. CM will continue to follow and will assist as needed with dc plans/needs. Communications Department Head: Heidi Kitchen DCPIA - Discharge Planning Initial Assessment Updated by [id number]: Heidi Kitchen on 09/23/19 2:27 pm * Is the patient Alert and Oriented? Yes * How many steps to enter\\exit or inside your home? * PCP ANDREA * Pharmacy [facility] * Preadmission Environment Home with Family * ADLs Independent * Equipment None * List name and contact numbers for known caregivers / representatives who currently or will assist patient after discharge: REYNA (SPOUSE) [phone] * Verbal permission to speak to the caregivers and representatives has been obtained from the patient. Yes * Additional services required to return to the preadmission environment? Yes * Has this patient been hospitalized within the prior 30 days at any hospital? No Coverage Notice Reviewer: [id number] Waqar Copeland Kristy Notice Issued Date-Time: 09/28/2019 14:07 Notice Type: IM Discharge Notice Notice Delivered To: Patient Relationship to Patient: Self Hair Boiler Operator Name: Delivery Method: HAND - Hand Delivered Kim Days: Prior Verbal Notification: Recipient Understood Notice: Yes Recipient Signature: Yes Med Rec Note Co-signed by Attending: Coverage Notice Comment: IMM explained, signed, given, copy placed in MR Last DP export: 09/25/19 2:40 p Patient Name: OZIEL CABRERA Page [id number] at 1412 All edits/amendments must be made on the electronic document DICTATION DATE: 09/28/19 1411 SHIPPING LEAD PERSON: EARLE 09/28/19 1411 RPT#: [id number] DC DATE: STATUS: ADM IN [facility] [address] [place] [address] END OF REPORT
--- NOTE | 2019-09-28 14:35 | NUR ---
TAKEN FROM UNIT PER W/C, ALEJANDRO WELL
--- NOTE | 2019-09-29 08:26 | MORECARE ---
CASE MANAGEMENT DISCHARGE SUMMARY PATIENT: OZIEL CABRERA UNIT: [id number] ADM DATE: 09/21/19 AGE: 78 : 40 SEX: F ROOM/BED: D.2220 AUTHOR: JUVENAL,DOC PHYSICIAN: REFERRING PHYSICIAN: DANAE WYNN MD DATE OF SERVICE: 09/29/19 Discharge Plan Patient Name: OZIEL CABRERA Facility: [facility]:[place] : 1940 Planned Disposition: Home or Self Care Anticipated Discharge Date: Discharge Date: 09/28/2019 Expected LOS: Initial Reviewer: [email or web address] Initial Review Date: 09/21/2019 Generated: 09/29/19 9:25 am Comments DCP- Discharge Planning Updated by [email or web address]: Dinorah Wagner on 09/28/19 1:[address] Patient Name: OZIEL CABRERA Encounter No: [id number] : 1940 Primary Insurance: MEDICARE A & B Anticipated DC Date: Planned Disposition: Home or Self Care External Planned Provider: : DCP follow-up note: Patient in agreement with discharge plan. No changes to plan. States her is going to purchase a walker. I informed her that she could go to [facility] or [facility] and use her insurance card, voiced understanding. I encouraged home health for OT/ST/PT. She states her daughter is getting private care with [facility] and she has used home health in the past. States she is going to have house calls and she thinks "that would be too many people coming to the house", so she declines home health at this time. I gave her a list of the home health agencies and encouraged her to speak with house calls about getting it set up. States will pick her up today for dc. Case management will follow and assist as needed. Dinorah Wagner DCP- Discharge Planning Updated by [id number]: Heidi Kitchen on 09/25/19 2:[address] spoke with Patient and area intelligence technician about the MRI and she is refusing the MRI, even explained to her about not using contrast. She still is not wanting to do the test. the providers all aware DCP- Discharge Planning Updated by [id number]: Heidi Kitchen on 09/23/19 1:[address] Patient Name: OZIEL CABRERA Admission Status: ER Accout number: [id number] Admission Date: 09-21-2019 : 1940 Admission Diagnosis:ALTERED MENTAL STATUS, UNSPECIFIED Attending: DANEA WYNN Current LOS: 2 Anticipated DC Date: Planned Disposition: Home or Self Care Primary Insurance: MEDICARE A & B Discharge Planning Comments: CM met with patient to complete initial dc planning assessment. CM educated patient on the CM role and verbal consent given by patient to complete assessment. 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 The patient is very tearful and sad. She is having a hard time getting words out and would like to speak to her . I attempted to call him but he did not answer, but I left a message for him to call her room & I placed the phone in her lap where she could reach it. From previous interaction with her spouse this past year, this is abnormal behavior for the patient then how he described her. Patient did state that she does not uses any DME and feeds herself at home. When I mentioned this to the patients nurse, the patient asked me why in the world would I ask these questions. There is a "feeder" sign on the door. I got the patient a glass of fresh water and she held it and served herself. She was unable to place it back on the bedside table. Patient denied known discharge needs at this time. CM will continue to follow and will assist as needed with dc plans/needs. Critical Care Technician: Heidi Kitchen DCPIA - Discharge Planning Initial Assessment Updated by [email or web address]: Heidi Kitchen on 09/23/19 2:27 pm * Is the patient Alert and Oriented? Yes * How many steps to enter\\exit or inside your home? * PCP ANDREA * Pharmacy [facility] * Preadmission Environment Home with Family * ADLs Independent * Equipment None * List name and contact numbers for known caregivers / representatives who currently or will assist patient after discharge: REYNA (SPOUSE) [phone] * Verbal permission to speak to the caregivers and representatives has been obtained from the patient. Yes * Additional services required to return to the preadmission environment? Yes * Has this patient been hospitalized within the prior 30 days at any hospital? No Coverage Notice Reviewer: [id number] Waqar Dinorah mSithrandell Notice Issued Date-Time: 09/28/2019 14:07 Notice Type: IM Discharge Notice Notice Delivered To: Patient Relationship to Patient: Self Cellophane Tester Name: Delivery Method: HAND - Hand Delivered Kim Days: Prior Verbal Notification: Recipient Understood Notice: Yes Recipient Signature: Yes Med Rec Note Co-signed by Attending: Coverage Notice Comment: IMM explained, signed, given, copy placed in MR Last DP export: 09/28/19 1:12 p Patient Name: OZIEL CABRERA Page [id number] at 0826 All edits/amendments must be made on the electronic document DICTATION DATE: 09/29/19824 HOME SERVICE CONSULTANT: EARLE 09/29/19824 RPT#: [id number] DC DATE:09/28/19 STATUS: DIS IN [facility] [address] [place] [address] END OF REPORT
== END 2019-09-28 14:50 | disposition home or self-care (01) | DRG 682 ==
LOC: D.ER 13:04 → D.MS 15:09
PROVIDERS: Family Medicine; Internal Medicine Hematology & Oncology; Internal Medicine Nephrology; ADMIT Internal Medicine Nephrology; ATTEND Internal Medicine Nephrology
DX: N17.9 Acute kidney failure, unspecified (principal); G93.41 Metabolic encephalopathy; E43 Unspecified severe protein-calorie malnutrition; Z68.1 Body mass index [BMI] 19.9 or less, adult; E83.52 Hypercalcemia; D64.9 Anemia, unspecified; I10 Essential (primary) hypertension; E87.6 Hypokalemia